=== PATIENT | male | born 2000 | race African-American/Black ===

== ENCOUNTER 2022-11-30 16:37 | Emergency (ER) | payer OTHER, SELFPAY ==
[2022-11-30 16:52] VITALS: BP 166/98; PULSE 78; RESP 18; TEMP 36.4; O2SAT 98
--- NOTE | 2022-11-30 19:02 | ED.DENTAL ---
HPI - Dental/Oral General Chief complaint: Dental/Oral <BERNARDA Arana Last Filed: 11/30/22 20:02> Stated complaint: right lower dental pain <BERNARDA Arana Last Filed: 11/30/22 20:02> Time Seen by Provider: 11/30/22 18:23 <BERNARDA Arana Last Filed: 11/30/22 20:02> Source: patient <BERNARDA Arana Last Filed: 11/30/22 20:02> Mode of arrival: ambulatory <BERNARDA Arana Last Filed: 11/30/22 20:02> Limitations: no limitations <BERNARDA Arana Last Filed: 11/30/22 20:02> History of Present Illness HPI Narrative: This is a 22-year-old male that presents to the emergency department for dentalgia noted since last night. Reports pain in a right lower molar. Reports swelling to the area. Denies fevers. <BERNARDA Arana Last Filed: 11/30/22 20:02> MD Complaint: tooth pain <BERNARDA Arana Last Filed: 11/30/22 20:02> Location: Tooth # (30) <BERNARDA Arana Last Filed: 11/30/22 20:02> Related Data Allergies/adverse reactions: Allergies Allergy/AdvReac Type Severity Reaction Status Date / Time No Known Allergies Allergy Verified 04/07/15 01:33 <BERNARDA Arana Last Filed: 11/30/22 20:02> Review of Systems Review of Systems: CONSTITUTIONAL: Denies fever ENT: Reports dentalgia <BERNARDA Arana Last Filed: 11/30/22 20:02> All systems reviewed & are unremarkable except as noted in HPI and below <BERNARDA Arana Last Filed: 11/30/22 20:02> [facility] Past Medical History Medical History: Medical History (Updated 12/01/22 @ 00:00 by Background Daemcatalino) No active medical problems <Aisha Hernandez PA-C - Last Filed: 11/30/22 20:02> Social History Social History: Social History (Updated 11/30/22 @ 19:03 by Aisha Hernandez PA-C) Smoking status: Current every day smoker Tobacco type: e-cigarettes/vaping <Aisha Hernandez PA-C - Last Filed: 11/30/22 20:02> Exam Narrative: GENERAL: Well-appearing, well-nourished, and in no acute distress. HEAD: Normocephalic, atraumatic. EYES: EOMI. ENT: Mucous membranes moist. Oropharynx without tonsillar hypertrophy exudate or other lesions. No trismus. Tooth #30 tender to palpation with mild swelling with fluctuance noted NECK: Supple. No adenopathy or masses. CHEST: Clear to auscultation. No respiratory distress. No wheezes rales or rhonchi HEART: Regular rate and rhythm. No murmur heard. Normal peripheral pulses. EXTREMITIES: Normal range of motion. No edema. SKIN: Warm, dry, no rash. NEURO: No focal deficits. Alert and oriented x3. PSYCH: Normal mood and affect <Aisha Hernandez PA-C - Last Filed: 11/30/22 20:02> Course Course Emergency Course: Patient updated on plan of care. Tolerated procedure well. <Aisha Hernandez PA-C - Last Filed: 11/30/22 20:02> [employer]/PA Physician Supervision This is a was performed by both a physician and an APC. I performed all aspects of the MDM as documented w/ the following additions: 42-year-old male presenting with dental pain. Found have a small abscess. Incision and drainage performed. Anne components of procedures performed under my supervision. All questions answered. Patient in agreement w/ disposition. <Quentin Jeffers MD - Last Filed: 12/02/22 19:57> Vital Signs Vital signs: Vital Signs Temperature 97.6 F 11/30/22 16:52 Pulse Rate 78 11/30/22 16:52 Respiratory Rate 18 11/30/22 16:52 Blood Pressure 166/98 H 11/30/22 16:52 Pulse Oximetry 98 11/30/22 16:52 Oxygen Delivery Room Air 11/30/22 16:52 Temperature 97.7 F 11/30/22 20:09 Pulse Rate 69 11/30/22 20:09 Respiratory Rate 14 11/30/22 20:09 Blood Pressure 135/67 11/30/22 20:09 Pulse Oximetry 100 11/30/22 20:09 Oxygen Delivery Room Air 11/30/22 16:52 <Aisha Hernandez PA-C - Last Filed: 11/30/22 20:02> Vital Signs Temperature
[2022-11-30] MEDS: KETOROLAC 30 MG/ML VIAL (*BKC) IM (19:06)
[2022-11-30] MEDS: BENZOCAINE/TETRACAINE SPRAY (*SP) 56 ML AEROSOL 1 SPRAY MUCOUS MEM (19:06)
[2022-11-30 20:09] VITALS: BP 135/67; PULSE 69; RESP 14; TEMP 36.5; O2SAT 100
== END 2022-11-30 20:13 | disposition home or self-care (01) ==
PROVIDERS: Emergency Provider Physician Assistant
DX: K04.7 Periapical abscess without sinus (principal); R03.0 Elevated blood-pressure reading, without diagnosis of hypertension; F17.290 Nicotine dependence, other tobacco product, uncomplicated
CPT/HCPCS: 41800; 96372; 99283; A9270; J1885

== ENCOUNTER 2023-06-22 10:54 | Emergency (ER) | payer OTHER, SELFPAY ==
[2023-06-22 10:55] VITALS: BP 149/88; PULSE 83; RESP 16; TEMP 36.6; O2SAT 100
--- NOTE | 2023-06-22 11:06 | ED.DENTAL ---
HPI - Dental/Oral General Chief complaint: Dental/Oral Stated complaint: TOOTHACHE,FACE SWELLING Time Seen by Provider: 06/22/23 10:57 History of Present Illness HPI Narrative: Patient here with toothache, started yesterday, has had this in the past which got better with antibiotics, has not been able to follow-up with a dentist due to not having insurance. Related Data Allergies Allergy/AdvReac Type Severity Reaction Status Date / Time No Known Allergies Allergy Verified 04/07/15 01:33 Review of Systems Review of Systems: CONST: No fever. HEENT: toothache C/V: No chest pain RESP: No cough GI: No nausea vomiting : No dysuria. M/S: No joint pain. SKIN: No rash. NEURO: [No headache or focal numbness or weakness] PSYCH: [No depression] [facility] Past Medical History Medical History (Updated 06/22/23 @ 11:05 by Rae Grider MD) No active medical problems Social History Social History (Updated 11/30/22 @ 19:03 by Aisha Hernandez PA-C) Smoking status: Current every day smoker Tobacco type: e-cigarettes/vaping Exam Narrative: EXAMINATION OF ORGAN SYSTEMS/BODY AREAS: Constitutional: Vital signs per nursing GENERAL:[No acute distress, non-toxic appearing.] HEAD: Normal with no signs of head trauma. EYES: EOMI, conjunctiva normal ENT: Hearing grossly intact. tenderness right lower molar, no palpable fluctuance LUNGS: Nonlabored breathing. HEART: [Regular rate and rhythm] ABD: [Soft], [nontender to palpation] EXT: Normal range of motion SKIN: [No rashes or lesions.] NEURO: [Alert and oriented x 3. No gross focal sensory or strength deficits.] PSYCH: Normal affect Course Vital Signs Vital signs: Vital Signs Temperature 97.8 F 06/22/23 10:55 Pulse Rate 83 06/22/23 10:55 Respiratory Rate 16 06/22/23 10:55 Blood Pressure 149/88 H 06/22/23 10:55 Pulse Oximetry 100 06/22/23 10:55 Oxygen Delivery Room Air 06/22/23 10:55 Temperature 97.8 F 06/22/23 10:55 Pulse Rate 83 06/22/23 10:55 Respiratory Rate 16 06/22/23 10:55 Blood Pressure 149/88 H 06/22/23 10:55 Pulse Oximetry 100 06/22/23 10:55 Oxygen Delivery Room Air 06/22/23 10:55 MDM - Dental/Oral MDM Narrative Medical decision making narrative: ED COURSE AND MEDICAL DECISION MAKING: Patient with worsening dental pain and dental decay. No palpable abscess. No signs of airway compromise. No systemic signs or symptoms. Follow-up instructions given for dental/oral surgery clinics. Patient was given return precautions and discharged home in stable condition. Discharge Plan Discharge Clinical Impression: Toothache, Dental caries Patient Disposition: Home, Self-Care Condition: Stable Instructions: Antibiotic Form, Dental Abscess (ED), Toothache (ED) Additional Instructions: Please follow up with a dentist, look up low-cost dental clinics in your area. You can always return for any further issues. Prescriptions: New amoxicillin 500 mg capsule 500 mg PO Q8H 7 Days Qty: 21 0RF ibuprofen 600 mg tablet 600 mg PO TID PRN (Reason: fever or pain) Qty: 30 0RF No Action amoxicillin-pot clavulanate 875-125 mg tablet 1 tablet PO Q12H 10 Days Qty: 20 0RF Follow-up/Referrals: PHYSICIAN,RN RADIATION [Primary Care Provider] -
== END 2023-06-22 11:15 | disposition home or self-care (01) ==
LOC: ANHED 11:06
PROVIDERS: Emergency Provider Emergency Medicine
DX: K02.9 Dental caries, unspecified (principal); F17.290 Nicotine dependence, other tobacco product, uncomplicated
CPT/HCPCS: 99283